=== PATIENT | male | born 1995 | race Hispanic/Latino ===

== ENCOUNTER 2017-12-19 17:04 | Emergency (ER) | payer OTHER, SELFPAY ==
--- NOTE | 2017-12-19 17:50 | ER ---
Nurse's Notes [facility] Name: Rafael Bermudez Jr Age: 22 yrs Sex: Male : 1995 Arrival Date: 12/19/2017 Time: 17:06 Bed 11 Private MD: None, None Diagnosis: Fever, unspecified-intermittent over 3-4 weeks;Rash and other nonspecific skin eruption;Cellulitis of left lower limb-foot;Lymphangitis Presentation: 12/19 17:17 Presenting complaint: Patient states: Report chills for 3 weeks with occasional aj appearance of "sores" on left forearm and now left foot. Transition of care: patient was not received from another setting of care. Onset of symptoms was November 29, 2017. Risk Assessment: Do you want to hurt yourself or someone else? Patient reports no desire to harm self or others. Initial Sepsis Screen: Does the patient meet any 2 criteria? No. Patient's initial sepsis screen is negative. Does the patient have a suspected source of infection? No. Patient's initial sepsis screen is negative. Care prior to arrival: None. 17:17 Method Of Arrival: Ambulatory 17:17 Acuity: KEVIN 4 aj Triage Assessment: 17:19 General: Appears in no apparent distress. comfortable, Behavior is calm, cooperative, aj appropriate for age. Pain: Denies pain. Neuro: Level of Consciousness is awake, alert, obeys commands, Oriented to person, place, time, situation, Appropriate for age. Respiratory: Airway is patent Respiratory effort is even, unlabored, Respiratory pattern is regular, symmetrical. Derm: Skin is intact, is healthy with good turgor, Skin is pink, warm \\T\\ dry. normal, Rash noted that is on dorsum of left foot and palmar aspect of left forearm. Historical: - Allergies: 17:19 No Known Allergies; aj - Home Meds: 17:19 None [Active]; aj - PMHx: 17:19 None; aj - PSHx: 17:19 None; aj - Immunization history:: Adult Immunizations up to date. - Social history:: Smoking status: Patient/guardian denies using tobacco. - Ebola Screening: : Patient negative for fever greater than or equal to 101.5 degrees Fahrenheit, and additional compatible Ebola Virus Disease symptoms Patient denies exposure to infectious person Patient denies travel to an Ebola-affected area in the 21 days before illness onset No symptoms or risks identified at this time. Screenin:45 Abuse screen: Denies threats or abuse. rk2 17:45 Nutritional screening: No deficits noted. Tuberculosis screening: No symptoms or risk rk2 factors identified. Fall Risk None identified. Assessment: 17:45 General: Appears in no apparent distress. well groomed, well developed, well nourished, rk2 Behavior is calm, cooperative, appropriate for age. 17:45 Neuro: Level of Consciousness is alert, obeys commands, Oriented to person, place, rk2 time, situation. Respiratory: Airway is patent Respiratory effort is even, unlabored, Respiratory pattern is regular, symmetrical. Derm: Skin is pink, warm \\T\\ dry. Vital Signs: 17:19 BP 140 / 80; Pulse 91; Resp 20; Temp 98.0; Pulse Ox 100% on R/A; Weight 79.38 kg; aj Height 5 ft. 6 in. (167.64 cm); 17:19 Body Mass Index 28.25 (79.38 kg, 167.64 cm) aj ED Course: 17:06 Patient arrived in ED. sb2 17:07 None, None is Private Physician. sb2 17:18 Triage completed. aj 17:19 Arm band placed on left wrist. Patient placed in an exam room. aj 17:20 Idania Ramires FNP-C is [facility]. snw 17:20 Chuckie Holman MD is Attending Physician. snw 17:21 Karo Gracia, BRADLEY is Primary Nurse. rk2 17:45 Patient has correct armband on for positive identification. Bed in low position. Call rk2 light in reach. 18:31 No provider procedures requiring assistance completed. Patient did not have IV access rk2 during this emergency room visit. 18:46 Primary Nurse role handed off by Karo Gracia, BRADLEY snw Administered Medications: 18:21 Drug: Clindamycin 300 mg Route: PO; rk2 18:30 Follow up: Given \\T\\ DC rk2 18:21 Drug: Bactrim (160 mg-800 mg (DS) 1 tablet Route: PO; rk2 18:30 Follow up: Given \\T\\ DC rk2 18:46 Drug: Zofran 4 mg Route: PO; snw Intake: Outcome: 17:50 Discharge ordered by . snw 18:31 Discharged to home ambulatory. rk2 18:31 Condition: good 18:31 Discharge instructions given to patient, Prescriptions given X 2. 18:31 Patient left the ED. rk2 18:47 Patient left the ED. rk2 Signatures: Louann Ramirez, RN Idania Menard, PLANT GUARD-C PLANT GUARD-Csnw Karo Gracia RN RN rk2 Ailyn Renee sb2
--- NOTE | 2017-12-19 17:51 | EDPHYS ---
Physician Documentation [facility] Name: Rafael Bermudez Jr Age: 22 yrs Sex: Male : 1995 Arrival Date: 12/19/2017 Time: 17:06 Bed 11 Private MD: None, None ED Physician Chuckie Holman HPI: 12/19 18:08 This 22 yrs old Male presents to ER via Ambulatory with complaints of Fever, snw Rash. 18:08 The patient reports fever, not measured (subjective), with a pattern that is waxing and snw waning, with chills and body aches. Onset: The symptoms/episode began/occurred suddenly, 1 month(s) ago. Associated signs and symptoms: Pertinent positives: myalgias, fever. Severity of symptoms: At their worst the symptoms were moderate. The patient has not experienced similar symptoms in the past. The patient has not recently seen a physician. denies immunocompromise dx. Historical: - Allergies: 17:19 No Known Allergies; aj - Home Meds: 17:19 None [Active]; aj - PMHx: 17:19 None; aj - PSHx: 17:19 None; aj - Immunization history:: Adult Immunizations up to date. - Social history:: Smoking status: Patient/guardian denies using tobacco. - Ebola Screening: : Patient negative for fever greater than or equal to 101.5 degrees Fahrenheit, and additional compatible Ebola Virus Disease symptoms Patient denies exposure to infectious person Patient denies travel to an Ebola-affected area in the 21 days before illness onset No symptoms or risks identified at this time. ROS: 18:06 Constitutional: positive for fever, chills, over 3-4 weeks, rash, denies weight loss, snw Eyes: Negative for injury, pain, redness, and discharge, ENT: Negative for injury, pain, and discharge, Neck: Negative for injury, pain, and swelling, Cardiovascular: Negative for chest pain, palpitations, and edema, Respiratory: Negative for shortness of breath, cough, wheezing, and pleuritic chest pain, Abdomen/GI: Negative for abdominal pain, nausea, vomiting, diarrhea, and constipation, Back: Negative for injury and pain, : Negative for injury, bleeding, discharge, and swelling, MS/Extremity: Negative for injury and deformity, Neuro: Negative for headache, weakness, numbness, tingling, and seizure, Psych: Negative for depression, anxiety, suicide ideation, homicidal ideation, and hallucinations. 18:06 Skin: Positive for rash. Exam: 17:58 Constitutional: This is a well developed, well nourished patient who is awake, alert, snw and in no acute distress. Head/Face: Normocephalic, atraumatic. Eyes: Pupils equal round and reactive to light, extra-ocular motions intact. Lids and lashes normal. Conjunctiva and sclera are non-icteric and not injected. Cornea within normal limits. Periorbital areas with no swelling, redness, or edema. ENT: Nares patent. No nasal discharge, no septal abnormalities noted. Tympanic membranes are normal and external auditory canals are clear. Oropharynx with no redness, swelling, or masses, exudates, or evidence of obstruction, uvula midline. Mucous membranes moist. Neck: Trachea midline, no thyromegaly or masses palpated, and no cervical lymphadenopathy. Supple, full range of motion without nuchal rigidity, or vertebral point tenderness. No Meningismus. Chest/axilla: Normal chest wall appearance and motion. Nontender with no deformity. No lesions are appreciated. Cardiovascular: Regular rate and rhythm with a normal S1 and S2. No gallops, murmurs, or rubs. Normal PMI, no JVD. No pulse deficits. Respiratory: Lungs have equal breath sounds bilaterally, clear to auscultation and percussion. No rales, rhonchi or wheezes noted. No increased work of breathing, no retractions or nasal flaring. Abdomen/GI: Soft, non-tender, with normal bowel sounds. No distension or tympany. No guarding or rebound. No evidence of tenderness throughout. Back: No spinal tenderness. No costovertebral tenderness. Full range of motion. MS/ Extremity: Pulses equal, no cyanosis. Neurovascular intact. Full, normal range of motion. Neuro: Awake and alert, GCS 15, oriented to person, place, time, and situation. Cranial nerves II-XII grossly intact. Motor strength 5/5 in all extremities. Sensory grossly intact. Cerebellar exam normal. Normal gait. 17:58 Skin: on the two healing papules to left elbow, left lateral foot with small blood blister appearance lesion with lymphangitis. Vital Signs: 17:19 BP 140 / 80; Pulse 91; Resp 20; Temp 98.0; Pulse Ox 100% on R/A; Weight 79.38 kg; aj Height 5 ft. 6 in. (167.64 cm); 17:19 Body Mass Index 28.25 (79.38 kg, 167.64 cm) aj MDM: 17:21 Patient medically screened. snw 18:07 Data reviewed: vital signs, nurses notes. Data interpreted: Pulse oximetry: on room air snw is 100 %. Interpretation: normal. Counseling: I had a detailed discussion with the patient and/or guardian regarding: the historical points, exam findings, and any diagnostic results supporting the discharge/admit diagnosis, the presence of at least one elevated blood pressure reading (>120/80) during this emergency department visit, the need for outpatient follow up, to return to the emergency department if symptoms worsen or persist or if there are any questions or concerns that arise at home. Special discussion: I discussed in detail with the patient the higher chance of wound infection based on his presenting history. Based on the history and exam findings, there is no indication for further emergent testing or inpatient evaluation. I discussed with the patient/guardian the need to see the primary care provider for further evaluation of the symptoms. 12/19 17:48 Order name: CBC with Diff; Complete Time: 18:19 snw 12/19 17:48 Order name: Chem 7; Complete Time: 18:39 snw 12/19 17:48 Order name: Blood Culture Adult (2) snw Administered Medications: 18:21 Drug: Clindamycin 300 mg Route: PO; rk2 18:30 Follow up: Given \T\ DC rk2 18:21 Drug: Bactrim (160 mg-800 mg (DS) 1 tablet Route: PO; rk2 18:30 Follow up: Given \T\ DC rk2 18:46 Drug: Zofran 4 mg Route: PO; snw Disposition: 12/20 06:55 Co-signature as Attending Physician, Chuckie Holman MD I agree with the assessment and jessica plan of care. Disposition: 12/19/17 17:50 Discharged to Home. Impression: Fever, unspecified - intermittent over 3-4 weeks, Rash and other nonspecific skin eruption, Cellulitis of left lower limb - foot, Lymphangitis. - Condition is Stable. - Discharge Instructions: Hypertension, Rash, Lymphangitis, Pediatric, Cellulitis, [id number], Fever, Adult, Kmsl-bh-Auxh, Immunosuppression. - Prescriptions for Clindamycin HCl 300 mg Oral Capsule - take 1 capsule by ORAL route every 6 hours for 10 days; 40 capsule. Bactrim DS 800- 160 mg Oral Tablet - take 1 tablet by ORAL route every 12 hours for 10 days; 20 tablet. - Work release form, Medication Reconciliation Form, Thank You Letter, Antibiotic Education, Prescription Opioid Use form. - Follow up: Private Physician; When: 2 - 3 days; Reason: Recheck today's complaints, Continuance of care, Re-evaluation by your physician. Follow up: Emergency Department; When: As needed; Reason: Worsening of condition. Signatures: Dispatcher [employer] Louann Luque RN RN Chuckie Machado MD MD cha Therrien, Shelly, LIBRARIAN HEAD-C LIBRARIAN HEAD-Csnw Karo Gracia RN RN rk2 Corrections: (The following items were deleted from the chart) 12/19 18:03 17:50 12/19/2017 17:50 Discharged to Home. Impression: Fever, unspecified - snw intermittent over 3-4 weeks; Rash and other nonspecific skin eruption; Cellulitis of left lower limb - foot. Condition is Stable. Forms are Medication Reconciliation Form, Thank You Letter, Antibiotic Education, Prescription Opioid Use. Follow up: Private Physician; When: 2 - 3 days; Reason: Recheck today's complaints, Continuance of care, Re-evaluation by your physician. Follow up: Emergency Department; When: As needed; Reason: Worsening of condition. snw 18:31 18:03 12/19/2017 17:50 Discharged to Home. Impression: Fever, unspecified - rk2 intermittent over 3-4 weeks; Rash and other nonspecific skin eruption; Cellulitis of left lower limb - foot; Lymphangitis. Condition is Stable. Discharge Instructions: Hypertension, Rash, Cellulitis, [id number]-Fvrm, Fever, Adult, Dhzy-tr-Wovv, Immunosuppression, Lymphangitis, Pediatric. Prescriptions for Clindamycin HCl 300 mg Oral Capsule - take 1 capsule by ORAL route every 6 hours for 10 days; 40 capsule, Bactrim DS 800-160 mg Oral Tablet - take 1 tablet by ORAL route every 12 hours for 10 days; 20 tablet. and Forms are Medication Reconciliation Form, Thank You Letter, Antibiotic Education, Prescription Opioid Use. Follow up: Private Physician; When: 2 - 3 days; Reason: Recheck today's complaints, Continuance of care, Re-evaluation by your physician. Follow up: Emergency Department; When: As needed; Reason: Worsening of condition. juan c 18:47 18:31 12/19/2017 17:50 Discharged to Home. Impression: Fever, unspecified - rk2 intermittent over 3-4 weeks; Rash and other nonspecific skin eruption; Cellulitis of left lower limb - foot; Lymphangitis. Condition is Stable. Discharge Instructions: Hypertension, Rash, Cellulitis, Oner-ln-Otyg, Fever, Adult, Tjkr-rl-Hwls, Immunosuppression, Lymphangitis, Pediatric. Prescriptions for Clindamycin HCl 300 mg Oral Capsule - take 1 capsule by ORAL route every 6 hours for 10 days; 40 capsule, Bactrim DS 800-160 mg Oral Tablet - take 1 tablet by ORAL route every 12 hours for 10 days; 20 tablet. and Forms are Medication Reconciliation Form, Thank You Letter, Antibiotic Education, Prescription Opioid Use. Follow up: Private Physician; When: 2 - 3 days; Reason: Recheck today's complaints, Continuance of care, Re-evaluation by your physician. Follow up: Emergency Department; When: As needed; Reason: Worsening of condition. rk2
[2017-12-19 18:14] LABS: Absolute Lymphocytes (CBC) 2.6 K/uL (0.7-4.9); Absolute Monocytes 0.9 K/uL (0.1-1.3); Absolute Neutrophil 12.6 K/uL (1.8-8.0); Basophils % 0.5 % (0-1.3); Eosinophils % 0.2 % (0-4.4); Lymphocytes % 16.1 % (15.3-44.8); MCH 28.6 pg (27.0-35.0); MCV 83.9 fL (80-100); MPV 10.1 fL (7.6-11.3); Monocytes % 5.5 % (3.3-12.3); RBC Red Blood Cell Count 5.24 M/uL (4.33-5.43)
[2017-12-19] MEDS ORDERED: SMZ./TMP. 800/160 MG TABLET ONE (18:21)
[2017-12-19] MEDS ORDERED: CLINDAMYCIN HCL 150 MG CAP ONE (18:22)
[2017-12-19 18:30] LABS: BUN Blood Urea Nitrogen 17 mg/dL (7-18); Bicarbonate 29 mmol/L (21-32); Glucose Level 93 mg/dL (74-106); Potassium 3.2 mmol/L (3.5-5.1); Sodium Level 134 mmol/L (136-145)
[2017-12-19] MEDS ORDERED: ONDANSETRON 4 MG (ODT) TAB ONE (18:47)
[2017-12-22 17:53] LABS: HIV 1/2 Antibody Diff Not indicated.; HIV AG/AB 4TH GEN Non-reactive (Non-reactive)
== END 2017-12-19 18:47 | disposition home or self-care (01) ==
LOC: ER 17:04
DX: R50.9 Fever, unspecified (principal); R21 Rash and other nonspecific skin eruption; L03.116 Cellulitis of left lower limb; I89.1 Lymphangitis
CPT/HCPCS: 36415; 80048; 85025; 87040; 87389; 99283